=== PATIENT | male | born 1980 | race Caucasian/White ===

== ENCOUNTER 2023-10-08 18:11 | Emergency (ER) | payer OTHER, SELFPAY ==
[2023-10-08 18:19] VITALS: BP 125/98; TEMP 36.3
--- NOTE | 2023-10-08 18:34 | ED.GENADUL_ITS ---
Discharge Plan Disposition Patient Disposition: Home Condition: Stable Discharge Details Clinical Impression: Cast discomfort Primary Care Provider: Marc Figueroa ED Provider: Jonas Orlando Home Meds and New Rx's Prescriptions: No Action levetiracetam [Keppra] 1,000 mg tablet 1,000 mg PO BID acetaminophen [Tylenol Extra Strength] 500 mg tablet 500 mg PO Q6H PRN ibuprofen 400 mg tablet 400 mg PO Q8H docusate sodium [Colace] 100 mg capsule 100 mg PO DAILY pantoprazole [Protonix] 40 mg tablet,delayed release (DR/EC) 40 mg PO DAILY Discharge Instructions Additional Instructions: You were seen in the emergency department for your discomfort in your wrist splint, you had circumferential plaster on your wrist and we are not going to remove this in the ED. We did add some extra padding and rewrap your wrist splint for you I will put you on the list to follow-up with orthopedics. You may loosen your splint as needed and rewrap, please use therapeutic dosing of Tylenol (acetamenophen) & Advil (ibuprofen) in an alternating fashion as follows: Take 1000mg of Tylenol every 6 hours without missing doses- that is 4 times per day. Snf in between the Tylenol dosings, take 400-600mg of Advil also on a 6 hour schedule, that is also 4 times per day. The daily maximum dosing of Tylenol is 4000mg, and the daily maximum dosing of Advil is 2400mg. This is safe to do for weeks. Please note that some common cold medications & prescription pain medications may contain acetamenophen and you need to read OTC drug labels and factor that in to maximum daily dosings. Please ice the area to complete numbness as often as possible this will be your best pain relief, there is a chance that you may need to follow-up with a hand surgeon which Dr. Nowak and Dr. Bates cannot help with. Referrals: [facility] [Provider Group] Marc Figueroa MD [Primary Care Provider] - Discharge Data Discharge Date/Time-TO BE ENTERED AT DEPARTURE: 10/08/23 20:53 HPI General Date/Time Provider Initiated Documentation: 10/08/23 18:33 . HPI Narrative: 43 year-old male presents to ED today by POV/ambulating with his with a chief complaint of injury on Sep 15- fell from a height with TBI, orbital fracture, and L hand fractures- scaphoid and 2nd MC- seen at [facility]- has remained in soft ulnar gutter & thumb spica combination splint applied by Orthopaedics- he was supposed to get casting done- but OT stated he shouldn't spend too much time in the car so they did not return for a 4 hour round trip to be casted- wished to follow-up with [facility] but referral process was taking a long time- presents with splint discomfort. Quality described as pinching at the forearm due to plaster splint, and some extra room in the MCP area of splint, no radiation to complete numbness or coolness of fingers, proximal pain, pain out o f proportion in L arm splint. Severity is described as 6/10. Palliating factors include nothing specific attempted. Provoking factors include nothing specific. Patient not anticoagulated. Related Data Home Medications Medication Instructions Recorded Confirmed acetaminophen 500 mg tablet 500 mg PO Q6H PRN 10/09/23 (Tylenol Extra Strength) docusate sodium 100 mg capsule 100 mg PO DAILY 10/09/23 (Colace) ibuprofen 400 mg tablet 400 mg PO Q8H 10/09/23 levetiracetam 1,000 mg tablet 1,000 mg PO BID 10/09/23 (Keppra) pantoprazole 40 mg tablet,delayed 40 mg PO DAILY 10/09/23 release (Protonix) Allergies Allergy/AdvReac Type Severity Reaction Status Date / Time No Known Allergies Allergy Unverified 10/09/23 10:05 General Stated Complaint: Orthopedic CLAUDINE: 3 Review of Systems All systems reviewed & are unremarkable except as noted in HPI and below Exam Narrative Exam Narrative: GENERAL APPEARANCE: Well-nourished, non-toxic, awake and alert, atraumatic, no acute distress. SKIN: Warm, pink, dry, intact, without rashes/lesions/ulcerations. HEAD: Normocephalic, atraumatic, normal hair distribution for gender/age. EYES: Pupils PERRLA, EOMs intact without nystagmus, normal conjunctiva, no exudates on lids/lashes. ENT: Nares patent, no circumoral cyanosis, no facial swelling NECK: Supple, trachea midline, painless cervical ROM. LUNGS/CHEST: Non-labored respirations, normal A/P diameter, symmetrical expansion, no chest wall deformity HEART (CV/PV): No peripheral edema, no JVD. ABDOMEN: Soft, non-distended, no guarding. MSK: Normal ROM, no swelling/deformity to bilateral UEs or LEs, moving all extremities without weakness, no cyanosis, spine midline without tenderness, normal curvature. L UE: Sensation intact in all fingers in the ulnar gutter/thumb spica splint, brisk capillary refill, no crepitus with palpation of the proximal forearm NEURO: Mental Status AAOx4 - alert to person, place, time, events No facial droop, no forehead involvement. Motor: No focal weakness - strength 5/5 in bilateral UEs and LEs, proximal and distal, symmetric. Sensory: sensation intact to light touch globally. Gait normal: patient ambulated without ataxia into ED room. PSYCH: euthymic, cooperative, pleasant, appropriate speech Course Vital Signs Vital signs: Vital Signs Temperature 36.3 C L 10/08/23 18:19 Blood Pressure 125/98 H 10/08/23 18:19 Temperature 36.3 C L 10/08/23 18:19 Temperature Source Skin 10/08/23 18:19 Respiratory Effort Normal 10/08/23 18:22 Blood Pressure 125/98 H 10/08/23 18:19 Pain Level 8 10/08/23 18:19 Medical Decision Making This dictation utilizes [id number] dictation software and may contain unedited grammatical errors. 43 y/o M presents to ED today with a chief complaint of fall frm height on Sep 15- seen at [facility], TBI/orbit fracture, but current complaint related to being in soft splint for 3 weeks- having pressure points in wrist, some tingling to fingers. Patient wishes to follow-up with [facility]. Patients' medical history: Benign other than current injury. Family and social history: Noncontributory. Pertinent exam findings / vital signs include L UE: Sensation intact in all fi ngers in the ulnar gutter/thumb spica splint, brisk capillary refill, no crepitus with palpation of the proximal forearm. Differential / pathologies of concern include cast or splint discomfort, not neurovascular compromise. Diagnostic studies of: -X-ray of the left wrist, shows no change in the patient's scaphoid fracture as well as second metacarpal fracture. Interventions of: -Loosened his splint and added extra padding at pressure points after consulting with orthopedics for close follow-up, arrange for follow-up this week in office. ED Course/Assessment/Plan: 43-year-old male patient presents with splint discomfort, he has remained in the soft splint for the past 3 weeks, he missed his appointment for casting due to his TBI and was recommended against driving the 4 hours roundtrip for this appointment. Wishes to follow-up locally. There is no sign of neurovascular compromise or compartment syndrome, he has brisk capillary refill and sensation intact in all fingers remaining in the combination ulnar gutter/thumb spica splint, he tolerated loosening and padding of the splinting well and counseled him on RICE therapy as well as therapeutic dosing of Tylenol and ibuprofen. Findings not consistent with neurovascular compromise or compartment syndrome, change in fractures. Disposition of cast discomfort. Patient verbalized understanding of the plan and return to ED criteria and engaged in shared decision making. Medical Records Medical records reviewed: Yes I reviewed the patient's medical records. Imaging Data Radiologic Study: Attestation: I personally reviewed and interpreted this imaging study as follows: Imaging: X-Ray Radiologist's impression: Exam: XR Left Wrist Exam date and time: 10/08/2023 7:54 PM Age: 43 years old Clinical indication: Injury or trauma; Other: Wrist injury, known FX TECHNIQUE: Imaging protocol: Radiologic exam of the left wrist. Views: 3 or more views. COMPARISON: No relevant prior studies available. FINDINGS: Bones/joints: Images obtained in cast obscuring fine bony details. There is a scaphoid fracture with anatomic alignment. Minimally displaced fracture the head of the 2nd metacarpal bone. Soft tissues: Normal. IMPRESSION: Near anatomic alignment of the scaphoid fracture and fracture of the head of the 2nd metacarpal bone. Limited assessment for other fractures due to cast material. Dictated and Authenticated by: He Ugalde MD. Ordering:RACHNA Mcdaniel MD Quality:[facility] Health Related Social Needs: No Data to Display PFSH All Active Problems (Updated 10/09/23 @ 10:14 by Austen Eason RN) Fracture of scaphoid of left wrist (Acute) Right radial head fracture (Acute) Cast discomfort (Acute) Social History Smoking/Tobacco Use Status: Never Smoking risk assessment performed?: Yes Alcohol Intake: current Alcohol Intake frequency: a few times a month Do you feel safe at home: Yes Do you feel safe in your relationship?: Yes
--- NOTE | 2023-10-08 19:30 | DI.RAD_ITS ---
Exam(s) XR WRIST LT COMP NAVICULAR EXAM: XR WRIST LT COMP NAVICULAR CLINICAL HISTORY: wrist injury, known fx. TECHNIQUE: 2D digital imaging was performed of the left wrist. Four images were obtained. Scaphoid , PA, oblique and lateral views were obtained. COMPARISON: No exams were available for comparison FINDINGS: The patient's wrist is in a cast which severely limits evaluation. BONES: There is a comminuted fracture of the lateral aspect of the distal pole of the scaphoid. Ther e is a mildly displaced comminuted fracture involving the head of the 2nd metacarpal bone. No bony d estructive lesion is seen. JOINTS: The carpal bones are normally aligned. SOFT TISSUE: Normal. IMPRESSION: 1. Examination is limited by the patient's cast material. 2. Fractures are seen involving the distal pole of the scaphoid and the head of the 2nd metacarpal erasmo ne. DATA REPOSITORY: RADIATION DOSE DELIVERED:
[2023-10-08] MEDS: Ibuprofen 400 MG TAB PO (20:06)
[2023-10-08] MEDS: Acetaminophen 500 MG TAB 1000 MG PO (20:06)
--- NOTE | 2023-10-08 20:11 | DI.VRAD_ITS ---
PROCEDURE INFORMATION: Exam: XR Left Wrist Exam date and time: 10/08/2023 7:54 PM Age: 43 years old Clinical indication: Injury or trauma; Other: Wrist injury, known FX TECHNIQUE: Imaging protocol: Radiologic exam of the left wrist. Views: 3 or more views. COMPARISON: No relevant prior studies available. FINDINGS: Bones/joints: Images obtained in cast obscuring fine bony details. There is a scaphoid fracture with anatomic alignment. Minimally displaced fracture the head of the 2nd metacarpal bone. Soft tissues: Normal. IMPRESSION: Near anatomic alignment of the scaphoid fracture and fracture of the head of the 2nd metacarpal bone. Limited assessment for other fractures due to cast material. Dictated and Authenticated by: He Ugalde MD. Ordering:RACHNA Mcdaniel MD
[2023-10-08 20:53] VITALS: BP 132/74; PULSE 68; RESP 18; O2SAT 98
== END 2023-10-08 20:53 | disposition home or self-care (01) ==
PROVIDERS: Emergency Provider Physician Assistant; PCP Family Medicine
DX: Z46.89 Encounter for fitting and adjustment of other specified devices (principal)
CPT/HCPCS: 99283; 73110

== ENCOUNTER 2023-10-09 11:06 | Outpatient (CLI) | payer OTHER, SELFPAY ==
--- NOTE | 2023-10-09 10:00 | DI.RAD_ITS ---
Exam(s) XR HAND LT COMPLETE XR WRIST LT COMPLETE EXAM: XR WRIST LT COMPLETE and XR hand LT complete CLINICAL HISTORY: RIGHT RADIAL HEAD FRACTURE. TECHNIQUE: 2D digital imaging was performed of the left wrist. Six images were obtained. PA, obliq ue and lateral views were obtained. COMPARISON: CR,XR XR WRIST LT COMP NAVICULAR from 10/08/2023 FINDINGS: BONES: There is a nondisplaced fracture of the lateral aspect of the distal pole of the scaphoid. Th ere is a fracture through the head and neck of the 2nd metacarpal bone. There is slight medial displ acement of the metacarpal head. No bony destructive lesion is seen. The fingers are flexed limiting evaluation. JOINTS: The carpal bones are normally aligned. The joint spaces are well maintained. SOFT TISSUE: Normal. IMPRESSION: 1. Nondisplaced fracture of the distal pole of the scaphoid. 2. Mild displacement of the fracture involving the distal left 2nd metacarpal. DATA REPOSITORY: RADIATION DOSE DELIVERED:
--- NOTE | 2023-10-09 10:00 | DI.RAD_ITS ---
Exam(s) XR ELBOW RT COMPLETE EXAM: XR ELBOW RT COMPLETE CLINICAL HISTORY: RIGHT RADIAL HEAD FRACTURE. TECHNIQUE: 2D digital imaging was performed of the left elbow. Three images were obtained. AP, lat eral and oblique views were obtained. COMPARISON: No exams were available for comparison FINDINGS: BONES: On the oblique view there is a vertical lucency projected through the radial head suspicious f or nondisplaced fracture. No bony destructive lesion is seen. JOINTS: The elbow is normally aligned. There is a small joint effusion. SOFT TISSUE: Normal. IMPRESSION: Findings suggestive of a nondisplaced fracture involving the radial head. This is best appreciated o n the oblique view. Small joint effusion. DATA REPOSITORY: RADIATION DOSE DELIVERED:
== END 2023-10-09 11:07 | disposition home or self-care (01) ==
LOC: DIORS 11:07
PROVIDERS: PCP Family Medicine; Visit Provider Student in an Organized Health Care Education/Training Program
DX: S52.121D Displaced fracture of head of right radius, subsequent encounter for closed fracture with routine healing (principal); S62.014D Nondisplaced fracture of distal pole of navicular [scaphoid] bone of right wrist, subsequent encounter for fracture with routine healing; X58.XXXD Exposure to other specified factors, subsequent encounter
CPT/HCPCS: 73080; 73110; 73130

== ENCOUNTER 2023-10-22 15:52 | Outpatient (CLI) | payer OTHER, SELFPAY ==
--- NOTE | 2023-10-22 15:39 | DI.RAD_ITS ---
Exam(s) XR HAND LT COMPLETE EXAM: XR HAND LT COMPLETE CLINICAL HISTORY: F/U FRACTURE. TECHNIQUE: 2D digital imaging was performed. COMPARISON: CR XR HAND LT COMPLETE from 10/09/2023 FINDINGS: 3 views taken through cast material There is stable alignment at the fracture site of the head/neck of the 2nd metacarpal. Difficult to evaluate for subtle healing through the fiberglass cast material. No additional fractures evident. No radiopaque foreign body IMPRESSION: Stable alignment DATA REPOSITORY: RADIATION DOSE DELIVERED:
--- NOTE | 2023-10-22 15:40 | DI.RAD_ITS ---
Exam(s) XR WRIST LT COMPLETE EXAM: XR WRIST LT COMPLETE CLINICAL HISTORY: F/U FRACTURE. TECHNIQUE: 2D digital imaging was performed. Three views. COMPARISON: CR XR WRIST LT COMPLETE from 10/09/2023 FINDINGS: BONES: A cast is in place. There has been no change in the alignment of the fracture at the distal p ole of the scaphoid. No bony destructive lesion is seen. JOINTS: The carpal bones are normally aligned. SOFT TISSUE: Normal. IMPRESSION: Stable alignment of scaphoid fracture. DATA REPOSITORY: RADIATION DOSE DELIVERED:
== END 2023-10-22 15:53 | disposition home or self-care (01) ==
LOC: DIORS 15:52
PROVIDERS: PCP Family Medicine; Visit Provider Student in an Organized Health Care Education/Training Program
DX: S62.331D Displaced fracture of neck of second metacarpal bone, left hand, subsequent encounter for fracture with routine healing (principal); S62.002D Unspecified fracture of navicular [scaphoid] bone of left wrist, subsequent encounter for fracture with routine healing
CPT/HCPCS: 73110; 73130

== ENCOUNTER 2023-11-12 14:45 | Outpatient (CLI) | payer OTHER, SELFPAY ==
--- NOTE | 2023-11-12 08:15 | DI.RAD_ITS ---
Exam(s) XR WRIST LT COMP NAVICULAR XR HAND LT COMPLETE EXAM: XR HAND LT COMPLETE and XR wrist LT complete with navicular CLINICAL HISTORY: F/U LEFT METACARPAL FX. TECHNIQUE: 2D digital imaging was performed of the left hand. Seven views were obtained. AP, navic ular, lateral and oblique views were obtained. COMPARISON: CR,XR XR WRIST LT COMP NAVICULAR from 10/08/2023 CR XR WRIST LT COMPLETE from 10/09/2023 CR XR HAND LT COMPLETE from 10/22/2023 CR XR WRIST LT COMPLETE from 10/22/2023 FINDINGS: BONES: There has been continued healing of the fracture involving the neck of the 2nd metacarpal. Th ere has been no change in alignment of the fracture. There is also been no change in alignment of th e fracture involving the distal and lateral aspect of the scaphoid. The fracture line is still visua lized. There are sclerotic borders of the fracture and nonunion or incomplete union should be consid ered. No new fractures are identified. No bony destructive lesion is seen. JOINTS: No dislocation present. SOFT TISSUE: Normal. IMPRESSION: Stable alignment of the scaphoid and 2nd metacarpal fractures as described above. DATA REPOSITORY: RADIATION DOSE DELIVERED:
--- NOTE | 2023-11-12 08:15 | DI.RAD_ITS ---
Exam(s) XR ELBOW RT COMPLETE EXAM: XR ELBOW RT COMPLETE CLINICAL HISTORY: RIGHT RADIAL HEAD FX F/U. TECHNIQUE: 2D digital imaging was performed. Three views. COMPARISON: CR XR ELBOW RT COMPLETE from 10/09/2023 FINDINGS: BONES: The radial head fracture is again noted. There is a minimal separation at the articular surfa ce. No additional fractures. No bony destructive lesion is seen. JOINTS: The elbow is normally aligned. No joint effusion is seen. SOFT TISSUE: Normal. IMPRESSION: Radial head fracture. DATA REPOSITORY: RADIATION DOSE DELIVERED:
== END 2023-11-12 14:46 | disposition home or self-care (01) ==
LOC: DIORS 14:45
PROVIDERS: PCP Family Medicine; Visit Provider Student in an Organized Health Care Education/Training Program
DX: S62.331D Displaced fracture of neck of second metacarpal bone, left hand, subsequent encounter for fracture with routine healing; S52.121D Displaced fracture of head of right radius, subsequent encounter for closed fracture with routine healing; X58.XXXD Exposure to other specified factors, subsequent encounter
CPT/HCPCS: 73080; 73110; 73130

== ENCOUNTER 2023-12-28 15:03 | Outpatient (CLI) | payer OTHER, SELFPAY ==
--- NOTE | 2023-12-28 08:00 | DI.RAD_ITS ---
Exam(s) XR HAND LT COMPLETE EXAM: XR HAND LT COMPLETE CLINICAL HISTORY: LEFT HAND FX. TECHNIQUE: 2D digital imaging was performed of the left hand. Three views were obtained. AP, later al and oblique views were obtained. COMPARISON: CR XR HAND LT COMPLETE from 10/09/2023 CR XR HAND LT COMPLETE from 11/12/2023 FINDINGS: BONES: The distal scaphoid fracture and the 2nd metacarpal fracture lines are much less well visualiz ed consistent with interval healing. No new fracture is seen. No bony destructive lesion is seen. JOINTS: No dislocation present. SOFT TISSUE: Normal. IMPRESSION: Continued healing of the scaphoid and 2nd metacarpal fracture. DATA REPOSITORY: RADIATION DOSE DELIVERED:
--- NOTE | 2023-12-28 08:00 | DI.RAD_ITS ---
Exam(s) XR ELBOW RT COMPLETE EXAM: XR ELBOW RT COMPLETE CLINICAL HISTORY: F/U RADIAL HEAD FX. TECHNIQUE: 2D digital imaging was performed of the left elbow. Four images were obtained. AP, late ral and oblique views were obtained. COMPARISON: CR XR ELBOW RT COMPLETE from 11/12/2023 FINDINGS: BONES: There is a stable alignment of the radial head fracture. The fracture line is still visualize d. No bony destructive lesion is seen. JOINTS: The elbow is normally aligned. No joint effusion is seen. SOFT TISSUE: Normal. IMPRESSION: Stable alignment of the radial head fracture. DATA REPOSITORY: RADIATION DOSE DELIVERED:
== END 2023-12-28 15:04 | disposition home or self-care (01) ==
LOC: DIORS 15:04
PROVIDERS: PCP Family Medicine; Visit Provider Student in an Organized Health Care Education/Training Program
DX: S62.331D Displaced fracture of neck of second metacarpal bone, left hand, subsequent encounter for fracture with routine healing (principal); S52.121D Displaced fracture of head of right radius, subsequent encounter for closed fracture with routine healing; X58.XXXD Exposure to other specified factors, subsequent encounter
CPT/HCPCS: 73080; 73130

== ENCOUNTER → 2024-02-02 15:42 | Outpatient (CLI) | payer BC, SELFPAY ==
--- NOTE | 2024-02-02 | DI.US_ITS ---
Exam(s) US SCROTUM EXAM: US SCROTUM CLINICAL HISTORY: N50.811 R Sided scrotal/testicular discomfort X3 days TECHNIQUE: Ultrasound of the testes performed using grayscale, color, and Doppler imaging. COMPARISON: No exams were available for comparison FINDINGS: RIGHT HEMISCROTUM: There is a mild right hydrocele. The right testicle exhibits normal size and echo architecture with no evidence of intratesticular mas s. Vascular flow was demonstrated within the right testicle, including arterial waveforms. The epididymis appears unremarkable. There are no epididymal head cysts. There is no ipsilateral varicocele. Incidentally noted is a 2 millimeter benign scrotal kani No evidence of right inguinal hernia. LEFT HEMISCROTUM: The left testicle exhibits normal size and echo architecture with no evidence of intratesticular mass . Vascular flow is demonstrated within the left testicle, including arterial waveforms. The epididymis appears unremarkable. There is a 3 millimeter spermatocele in the epididymal body. Ipsilateral varicocele noted. These veins measure up to 3 mm diameter IMPRESSION: 1. No evidence of testicular mass nor testicular torsion. 2. Left varicocele. Small left spermatocele. Small-moderate size right hydrocele. DATA REPOSITORY:
[2024-02-02 15:42] LABS: Abs Immature Grans 0.04 10^3/uL (0.0-0.06); Absolute Basophil Count 0.04 10^3/uL (0.0-0.2); Absolute Eosinophil Count 0.12 10^3/uL (0.0-0.7); Absolute Lymphocyte Count 1.98 10^3/uL (1.2-3.4); Absolute Monocyte Count 0.73 10^3/uL (0.1-0.8); Basophils % 0.5 %; Eosinophils % 1.5 %; HCT 43.3 % (40.0-50.0); HGB 14.4 g/dL (13.5-17.5); Immature Grans % 0.5 %; Lymphocytes % 24.7 %; MCH 29.9 pg (27.0-33.0); MCHC 33.3 % (32.0-36.0); MCV 90 fL (80-95); MPV 10.1 fL (8.0-11.0); Monocytes % 9.1 %; Neutrophils % 63.7 %; Platelet Count 237 10^3/uL (130-400); RBC 4.82 10^6/uL (4.36-5.78); RDW 12.6 % (11.8-14.1); RDW-SD 41.4 fL; WBC 8.01 10^3/uL (4.4-10.8)
[2024-02-02 15:59] LABS: C-Reactive Protein < 0.50 mg/dL (<or=0.5)
== END ==
PROVIDERS: PCP Family Medicine; Visit Provider Nurse Practitioner Family
DX: N43.42 Spermatocele of epididymis, multiple (principal)
CPT/HCPCS: 36415; 76870; 85025; 86140

== ENCOUNTER 2024-02-22 13:17 | Outpatient (CLI) | payer BC, SELFPAY ==
--- NOTE | 2024-02-22 09:15 | DI.RAD_ITS ---
Exam(s) XR ELBOW RT COMPLETE EXAM: XR ELBOW RT COMPLETE CLINICAL HISTORY: F/U FRACTURE. TECHNIQUE: 2D digital imaging was performed of the left elbow. Three images were obtained. AP, lat eral and oblique views were obtained. COMPARISON: CR XR ELBOW RT COMPLETE from 12/28/2023 FINDINGS: BONES: There is still a small component of the fracture line visualized on both the AP and the obliqu e views. No bony destructive lesion is seen. JOINTS: The elbow is normally aligned. No joint effusion is seen. SOFT TISSUE: Normal. IMPRESSION: Stable alignment of the radial head fracture with only a short segment of the fracture line visualize d on the current examination. DATA REPOSITORY: RADIATION DOSE DELIVERED:
--- NOTE | 2024-02-22 09:15 | DI.RAD_ITS ---
Exam(s) XR HAND LT COMPLETE EXAM: XR HAND LT COMPLETE CLINICAL HISTORY: F/U FRACTURE. TECHNIQUE: 2D digital imaging was performed of the left hand. Three views were obtained. AP, later al and oblique views were obtained. COMPARISON: CR XR HAND LT COMPLETE from 10/09/2023 CR XR HAND LT COMPLETE from 11/12/2023 CR XR HAND LT COMPLETE from 12/28/2023 FINDINGS: BONES: The distal scaphoid fracture appears well healed. Likewise the distal 2nd metacarpal fracture appears healed. No bony destructive lesion is seen. JOINTS: No dislocation present. The joint spaces are well maintained. SOFT TISSUE: Normal. IMPRESSION: The 2nd metacarpal and distal scaphoid fracture appear healed. DATA REPOSITORY: RADIATION DOSE DELIVERED:
== END 2024-02-22 13:18 | disposition home or self-care (01) ==
LOC: DIORS 13:20
PROVIDERS: PCP Family Medicine; Visit Provider Student in an Organized Health Care Education/Training Program
DX: S52.121D Displaced fracture of head of right radius, subsequent encounter for closed fracture with routine healing; S62.331D Displaced fracture of neck of second metacarpal bone, left hand, subsequent encounter for fracture with routine healing; X58.XXXD Exposure to other specified factors, subsequent encounter
CPT/HCPCS: 73080; 73130

== ENCOUNTER 2024-06-30 16:43 | Outpatient (REF) | payer MEDICAID, SELFPAY ==
[2024-06-30 15:33] LABS: Anion Gap 9.5 mmol/L (3-11); BUN 13 mg/dL (7-18); CO2 27.5 mmol/L (21.0-32.0); CREATININE 1.1 mg/dL (0.70-1.30); Calcium 9.4 mg/dL (8.5-10.1); Calculated LDL 168 mg/dL (<100); Chloride 106 mmol/L (98-107); Cholesterol 264 mg/dL (<200); Estimated GFR 85.95 (mL/min/1.73m2); Glucose 94 mg/dL (74-106); HDL Cholesterol 52 mg/dL (40-60); Potassium 4.8 mmol/L (3.5-5.1); Sodium 143 mmol/L (136-145); Triglyceride 221 mg/dL (<150)
== END 2024-06-30 16:44 | disposition home or self-care (01) ==
LOC: NCHCN 16:43
PROVIDERS: PCP Family Medicine; Visit Provider Family Medicine
DX: E66.9 Obesity, unspecified (principal); Z00.00 Encounter for general adult medical examination without abnormal findings
CPT/HCPCS: 80048; 80061